=== PATIENT | female | born 1950 | race African-American/Black ===

== ENCOUNTER 2025-01-31 07:00 | Day surgery (SDC) | payer OTHER ==
[2025-01-26 15:05] LABS: Absolute Basophils 0.1 K/uL (0-0.5); Absolute Eosinophils 0.6 K/uL (0-0.5); Absolute Lymphocytes (CBC) 1.6 K/uL (0.7-4.9); Absolute Monocytes 0.7 K/uL (0.1-1.3); Absolute Neutrophil 3.6 K/uL (1.8-8.0); Eosinophils % 9.8 % (0-4.4); Hematocrit 39.8 % (36.0-45.0); Hemoglobin 13.1 g/dL (12.0-15.0); Lymphocytes % 24.9 % (15.3-44.8); MCH 31.3 pg (27.0-35.0); MCV 94.7 fL (80-100); MPV 10.8 fL (7.6-11.3); Monocytes % 9.9 % (3.3-12.3); Neutrophils % 54.4 % (41.7-73.7); Nucleated Red Blood Cells % 0.1 % (0-0); Platelets 172 thou/uL (152-406)
[2025-01-26 15:10] LABS: PT Prothrombin Time 19.6 SECONDS (10-13.0); PTT, Activated Partial Thromb 34.4 SECONDS (27.2-37.4); Protime INR 1.77
[2025-01-26 15:14] LABS: Anion Gap 8.4 mEq/L (5.0-15.0); Potassium 4.4 mEq/L (3.5-5.1)
--- NOTE | 2025-01-30 12:13 | EKG ---
Test Date: 2025-01-26 Test Time: 14:43:42 Morning Babysitter: CG MEASUREMENT RESULTS: Intervals: Rate: 71 MA: 88 QRSD: 156 QT: 486 QTc: 528 [place]: P: 49 MA: 88 QRS: 241 T: -50 INTERPRETIVE STATEMENTS: AV sequential or dual chamber electronic pacemaker No previous ECG available for comparison Electronically Signed On 01-30-25 12:03:59 CDT by Willie Pool
[~2025-01-31 07:00] MED LIST: NA CHLORIDE 0.9% 500 ML ONE
[2025-01-31] MEDS ORDERED: LIDOCAINE 1% 20 ML MDV ONE (07:06)
[2025-01-31] MEDS ORDERED: HEPA 1000U/500MLS 2,000 UNIT/1,000 ML BAG IV ONE (07:07)
[2025-01-31] MEDS ORDERED: HEPARIN 5000 UNIT/ML 1 ML VIAL ONE (07:08)
[2025-01-31] MEDS ORDERED: ATROPINE SULF 1 MG/10 ML SYR IV ONE (07:08)
[2025-01-31] MEDS ORDERED: HEPARIN 10,000 UNIT/10 ML VIAL IV ONE (07:08)
[2025-01-31] MEDS ORDERED: FENTANYL CITR 100 MCG/2 ML ONE (07:08)
[2025-01-31] MEDS ORDERED: MIDAZOLAM HCL 2 MG/2 ML INJ ONE (07:08)
[2025-01-31] MEDS ORDERED: TICAGRELOR 90 MG TABLET PO ONE (07:49)
[2025-01-31] MEDS ORDERED: ASPIRIN 325 MG TAB ONE (07:49)
[2025-01-31] MEDS ORDERED: CLOPIDOGREL 75 MG TABLET ONE (08:22)
--- NOTE | 2025-01-31 10:23 | OP ---
Date of Procedure: 01/31/2025 Surgeon: Willie Pool Procedure Performed: 1. Selective coronary angiogram. 2. PCI of the RCA with Synergy 3.5 x 12 mm drug-eluting stent. Indication For Procedure: Heart failure, reduced ejection fraction with abnormal stress test. Complications: None. Estimated Blood Loss: Less than 50 cc. Access: Right radial, closed by TR band and right common femoral artery, closed by Mynx. Sedation Time: 30 minutes with 2 of Versed and 50 of fentanyl. Description Of Procedure: After risks, benefits, and alternatives were explained to the patient, the patient agreed to proceed with procedure and signed informed consent. The patient was brought back to the optical lab technician, prepped and draped in sterile fashion. Time-out was performed. Sedation was admini stered. Next, right radial access was obtained using ultrasound-guided micropuncture technique. Tig er 4 catheter was advanced over a J-wire for selective angiogram. Then, after we tried to exchange t he [place] 4 catheter with a JR4 guide, but due to significant tortuosity of the right subclavian arter y, we had to switch to a groin access, so right common femoral artery access was obtained using an ul trasound-guided micropuncture technique. A JR4 guide was advanced to the aortic root and we passed t he run-through wire into the RCA lesion. We pre-dilated the lesion with an NC 2.5 and wolverine 3.0 mm cutting balloon. Next, Synergy 3.5 x 12 mm drug-eluting stent was placed across the lesion that i s postdilated with an NC 4.0 mm balloon. Final angiogram shows CAROLANN-3 flow. At the end of procedure , wire was removed. Catheter was removed over a J-wire. Sheath was removed and Mynx was applied and also the radial sheath was removed and a TR band was applied. Hemostasis achieved. The patient was moved back to recovery in stable condition. Findings: 1. Left main, normal. 2. LAD, very tortuous artery with heavy calcifications with a proximal and very tortuous with 290-deg ree bents, 40% to 50% disease, then mild luminal irregularities. 3. Left circ, mild luminal irregularities. 4. RCA, dominant, tortuous with proximal to mid calcified 80% disease. PCI done with Synergy 3.5 x 1 2 mm drug-eluting stent and then mid to distal mild luminal irregularities with an RPDA that got mild luminal regularities. Assessment: 1. 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 2. Mild to moderate proximal to mid LAD disease, very tortuous, calcified artery. Plan: 1. Aspirin 81 mg daily for life. 2. Brilinta 180 mg x1 was given in the optical lab technician, the patient will be loaded with Plavix before discha rge and continue Plavix 75 mg daily. 3. Resume Keily kwok. IJEOMA/HOWIE Voice ID: [id number] Report ID: [id number]
[2025-01-31 13:01] VITALS: BP 143/78; O2SAT 100
== END 2025-01-31 12:45 | disposition home or self-care (01) ==
LOC: DS 07:00 → CCL 12:45
PROVIDERS: ADMIT Internal Medicine; ATTEND Internal Medicine Interventional Cardiology
PROC: 027034Z Dilation of Coronary Artery, One Artery with Drug-eluting Intraluminal Device, Percutaneous Approach (ICD-10-PCS; principal; 2025-01-31)
PROC: B2111ZZ Fluoroscopy of Multiple Coronary Arteries using Low Osmolar Contrast (ICD-10-PCS; 2025-01-31)
DX: I25.110 Atherosclerotic heart disease of native coronary artery with unstable angina pectoris (principal); I77.1 Stricture of artery; I11.0 Hypertensive heart disease with heart failure; I50.22 Chronic systolic (congestive) heart failure; I48.0 Paroxysmal atrial fibrillation; Z95.0 Presence of cardiac pacemaker; Z79.01 Long term (current) use of anticoagulants; Z79.899 Other long term (current) drug therapy
CPT/HCPCS: 36415; 76937; 80048; 85025; 85347; 85610; 85730; 92928; 93005; 93454; 99152; 99153; C1725; C1760; C1893; C9600; J0461; J1644; J2003; J2250; J3010; J7040; Q9967